=== PATIENT | female | born 1980 | race Caucasian/White ===

== ENCOUNTER 2016-11-30 17:46 | Emergency (ER) | payer OTHER ==
[~2016-11-30] VITALS: Ht 162.6 cm; Wt 136.1 kg
[~2016-11-30 17:46] MED LIST: ABILIFY5 MG PO; ALBUTEROL-200 PUFFS/ IH; HYCODAN COUMPO473 ML PO; LEXAPRO 10 MG T10 MG PO
--- NOTE | 2016-11-30 18:24 | Urgent Treatment Center Report ---
History of Present Issue Date/Time Seen by Provider 11/30/161818 Visit Reason Pt arrived:Walked Presenting Problem:PT C/O SINUS PAIN, CONGESTION AND LEFT EAR PAIN Location if Accident: Onset of symptoms date/time:/ or onset unknown for:MEDICAL HX UNKNOWN Have you (or family members/close friends) recently traveled outside the [place]? N If Yes, where/when: Have you had exposure to infectious disease within the past month? TB? Other? Specify: Source patient, RN notes reviewed Exam Limitations no limitations ALLERGIES Coded Allergies: aspirin (Severe, 11/30/16) Sulfa (Sulfonamide Antibiotics) (Mild, 11/30/16) amoxicillin (Mild, 11/30/16) cephalexin (From KEFLEX) (Mild, 11/30/16) ciprofloxacin (From CIPRO) (Mild, 11/30/16) guaifenesin (From ENTEX T) (Mild, 11/30/16) pseudoephedrine (From ENTEX T) (Mild, 11/30/16) Uncoded Allergies: STEROIDS (Mild, 11/30/16) Home Medications Reported Medications Albuterol (Albuterol-Hfa Inhaler) 1 PUFF IH BID Escitalopram Oxalate (Lexapro 10MG) 10 MG PO DAILY Aripiprazole (Abilify) 5 MG PO QHS History Medical History General Angina: No CA: No Hypertension? No Hyperlipidemia? No COPD? No Asthma? No Thyroid Problems? Yes Hypothyroidism? Yes CVA? No Seizures? No Diabetes? No GB Disease: No MRSA? No TB? No Depression? Yes Cancer? No Immunization HX DT/Tetanus Unknown Surgical Hx Previous Surgery?Y EAR TUBES T&A Social History Smoking Hx Smoker: Current Every Day Smoker Tobacco: Yes Type Cigarettes Packs/day 1 1/2 - 2 Packs Alcohol Alcohol: No Review of Systems All Other Systems Reviewed and Negative ENT ear pain, nose congestion. Physical Exam Vital Signs Vital Signs Date Time Temp Pulse Resp B/P Pulse O2 O2 Flow FiO2 Ox Delivery Rate 11/30 1759 98.6 93 16 124/84 95 General Appearance normal appearance, no apparent distress Ear, Nose, Throat abnormal TM (R), abnormal TM (L) Respiratory Status No: respiratory distress, trachea midline, chest symmetrical. Lung Sounds bilateral: normal breath sounds, lungs clear. Cardiovascular normal exam, regular rate/rhythm, no peripheral edema, no gallop, no JVD, no murmur, no rub Gastrointestinal normal bowel sounds, normal exam, non tender Neurologic alert, normal exam, oriented x 3 Medical Decision Making LABS/Meds/Orders Pt receiving controlled substance in ED? No Departure Departure Time of Disposition 1821 Disposition DC Home or Self Care(routine) Clinical Impression Primary Impression: Otitis media Condition STABLE Referrals Jannet Valverde APRN (Family) Patient Instructions DI for Otitis Media (Middle Ear Infection)-Child Discharge Counseling Counseled pt/family regarding diagnosis, medications/RX Prescriptions Current Visit Scripts CEFDINIR (Cefdinir) 300 MG PO BID #14 CAP Pseudoephedrine Hcl (Sudafed 12 Hour) 120 MG PO BID #20 TER Fluticasone Propionate (Flonase 50 Mcg Nasal [place]) 1 SPRAY NA BID #1 BOT at 1837
[2016-11-30] MEDS ORDERED: CEFDINIR 300MG300 MG PO (18:28)
[2016-11-30] MEDS ORDERED: FLONASE 50 MCG16 GM (18:28)
[2016-11-30] MEDS ORDERED: SUDAFED 12HR120 MG PO (18:28)
[2016-11-30 18:42] VITALS: BP 124/84
== END 2016-11-30 18:42 | disposition home or self-care (01) ==
LOC: UTC 17:46
DX: H66.91 Otitis media, unspecified, right ear (principal); Z72.0 Tobacco use

== ENCOUNTER 2017-01-27 11:06 | Emergency (ER) | payer OTHER ==
[~2017-01-27] VITALS: Ht 162.6 cm; Wt 139.3 kg
[~2017-01-27 11:06] MED LIST changes: +CEFDINIR 300MG300 MG PO; +FLONASE 50 MCG16 GM; +SUDAFED 12HR120 MG PO
--- OUTSIDE RECORDS SUMMARY | 2017-01-27 11:12 | External Medical Summary Rpt ---
Demographics Preferred Language Lebanese Marital Status Unknown Cheondoism Affiliation Unknown Race Unknown Ethnic Group Unknown Author Author , Organization [employer] Address Unknown Phone Unavailable Purpose Continuity of Care Document - through 2016 Immunization No patient found.
--- OUTSIDE RECORDS SUMMARY | 2017-01-27 11:12 | External Medical Summary Rpt ---
Demographics Preferred Language Montserratian Marital Status Unknown Gnosticist Affiliation Unknown Race Unknown Ethnic Group Unknown Author Author , Organization [employer] Address Unknown Phone Unavailable Purpose Continuity of Care Document - through 2016 Immunization No patient found.
--- OUTSIDE RECORDS SUMMARY | 2017-01-27 11:12 | External Medical Summary Rpt ---
Author Author [employer] Organization [employer] Address Unknown Phone Unavailable
--- OUTSIDE RECORDS SUMMARY | 2017-01-27 11:12 | External Medical Summary Rpt ---
Author Author [employer] Organization [employer] Address Unknown Phone Unavailable Purpose Continuity of Care Document - through 2016
--- OUTSIDE RECORDS SUMMARY | 2017-01-27 11:12 | External Medical Summary Rpt ---
Author Author , Organization [employer] Address Unknown Phone Unavailable Purpose Continuity of Care Document - through 2016 Problems Code Diagnosis DOS Provider Status J40 BRONCHITIS, NOT SPECIFIED ACUTE OR CHRONIC
--- NOTE | 2017-01-27 11:23 | Urgent Treatment Center Report ---
History of Present Issue Date/Time Seen by Provider 01/27/17 1122 Visit Reason Pt arrived:Walked Presenting Problem:PT THINKS SHE HAS AN EAR AND SINUS INFECTION Location if Accident: Onset of symptoms date/time:/ or onset unknown for:MEDICAL HX UNKNOWN Have you (or family members/close friends) recently traveled outside the [place]? N If Yes, where/when: Have you had exposure to infectious disease within the past month? TB? Other? Specify: c/o "I think I have another ear and sinus infection". Started w/ rhinorrhea, nasal congestion, cough, PND 3-4 days ago. "Same thing my daughter and spouse have had in the last week. Both were diagnosed as viral." However, last 2 days, left ear pain worse. Hx of frequent ear infections w/ 6 sets of tubes in the past. ENT, Dr. Goddard, recommends surgery but pt is scared and hasn't went back. Last appt approx one year ago. Since symptoms started, flonase and sudafed hasn 't really helped. Hearing decreased on left. Worse at night when flat. Denies fever, aches, chills, sore throat. Source patient Exam Limitations no limitations ALLERGIES Coded Allergies: aspirin (Severe, 11/30/16) Sulfa (Sulfonamide Antibiotics) (Mild, 11/30/16) amoxicillin (Mild, 11/30/16) cephalexin (From KEFLEX) (Mild, 11/30/16) ciprofloxacin (From CIPRO) (Mild, 11/30/16) guaifenesin (From ENTEX T) (Mild, 11/30/16) pseudoephedrine (From ENTEX T) (Mild, 11/30/16) Uncoded Allergies: STEROIDS (Mild, 11/30/16) Home Medications Active Scripts CEFDINIR (Cefdinir) 300 MG PO BID #14 CAP Prov: 11/30/16 Pseudoephedrine Hcl (Sudafed 12 Hour) 120 MG PO BID #20 TER Prov: 11/30/16 Fluticasone Propionate (Flonase 50 Mcg Nasal [place]) 1 SPRAY NA BID #1 BOT Prov: 11/30/16 Reported Medications Albuterol (Albuterol-Hfa Inhaler) 1 PUFF IH BID Escitalopram Oxalate (Lexapro 10MG) 10 MG PO DAILY Aripiprazole (Abilify) 5 MG PO QHS History Medical History General CAD? No Angina: No SC: No Hypertension? No Hyperlipidemia? No CHF? No DVT? No PE? No COPD? No Asthma? No Anemia? No GERD? No Gastric ulcers? No GI Bleed? No Hernia? No Thyroid Problems? Yes Hypothyroidism? Yes CVA? No Seizures? No Diabetes? No Renal Insuffiency? No UTI? No Stones? No BPH? No GB Disease: No Nephritic Syndrome? No Asplenia? No Hepatitis? No Sickle Cell Disease? No Arthritis? No Migraines? No Cataracts? No Glaucoma? No MRSA? No HIV? No TB? No Anxiety? No Depression? Yes Cancer? No Immunization HX DT/Tetanus Unknown Surgical Hx Previous Surgery?Y EAR TUBES T&A Social History Smoking Hx Smoker: Current Every Day Smoker Tobacco: Yes Type Cigarettes Packs/day 1 1/2 - 2 Packs Alcohol Alcohol: No Review of Systems All Other Systems Reviewed and Negative Constitutional see HPI, denies malaise Eyes denies drainage ENT see HPI. denies: ear discharge, throat swelling. Respiratory see HPI, cough (nonprod), denies shortness of breath, denies stridor, denies wheezing Cardiovascular denies chest pain Gastrointestinal denies no symptoms reported Skin denies rash Psychiatric/Neurological headache ("sinus pressure type") Physical Exam Vital Signs Vital Signs Date Time Temp Pulse Resp B/P Pulse O2 O2 Flow FiO2 Ox Delivery Rate 01/27 1117 98.2 107 20 145/79 98 General Appearance no apparent distress, obese Eye Exam - bilateral eye normal exam Ear, Nose, Throat hearing grossly normal, normal pharynx, nasal congestion, mild frontal sinus tenderness bilateral w/ moderate maxillary tenderness bilaterally, normal EAC lorenzo, Right TM scared but otherwise lizarraga, intact and nontender, left TM w/ lots of scaring, minimal opaque areas that are red, no landmarks visible, appears intact, tender Neck non-tender, supple Respiratory Status No: respiratory distress (no cough in office). Lung Sounds anterior: lungs clear. posterior: lungs clear. bilateral: lungs clear. Cardiovascular regular rate/rhythm, no peripheral edema, no murmur Neurologic alert Skin normal color, warm/dry Lymphatic no adenopathy (head/neck) Medical Decision Making LABS/Meds/Orders Pt receiving controlled substance in ED? No Departure Departure Time of Disposition 1129 Disposition DC Home or Self Care(routine) Clinical Impression Primary Impression: Upper respiratory virus Secondary Impressions: Left otitis media Condition STABLE Referrals JAKUB BURCH, SHAD (Family) Follow up IMMEDIATELY for new or worsening symptoms OR no noticeable improvement over the next 48-72 hours. 911 for difficulty breathing or swallowing. Patient Instructions DI for Otitis Media (Middle Ear Infection)-Child, DI for Viral Upper Respiratory Infection -- Adult Additional Instructions * Start antibiotic RAYNA and be sure to take as ordered for the FULL length of time although you should start to feel better in 24-48 hours. * Continue sudafed and flonase * Consider follow up w/ ENT given back to back OM * Monitor Temp. Tylenol every 4 hours as needed and/or ibuprofen every 6 hours as needed (as long as your primary care doctor has told you that it is ok to take both) for fever/aches/pain. ER if fever no less than 101 despite tylenol and ibuprofen * Encourage fluids, water, gatorade, powerade, pedialyte if infant/toddler/child * warm compress often helps when placed over ear * sleep elevated * warm salt water gargles * warm fluids * sore throat lozenges * sleep elevated * humidifier/vaporizer * Immediately for new or worsening symptoms, no noticeable improvement in 48-72 hours AND in 10-14 days to ensure ears are back to baseline. Discharge Counseling Counseled pt/family regarding diagnosis, medications/RX, home care, follow up needs Prescriptions Current Visit Scripts CEFDINIR (Cefdinir) 300 MG PO BID #20 CAP at 4273
[2017-01-27] MEDS ORDERED: CEFDINIR 300MG300 MG PO (11:32)
[2017-01-27 11:34] VITALS: BP 145/79
== END 2017-01-27 11:35 | disposition home or self-care (01) ==
LOC: UTC 11:06
DX: J06.9 Acute upper respiratory infection, unspecified (principal)